=== PATIENT | male | born 1990 | race Caucasian/White ===

== ENCOUNTER 2021-11-27 11:10 | Day surgery (SDC) | payer MEDICARE, MEDICAID ==
[~2021-11-27] VITALS: Ht 175.3 cm; Wt 64.0 kg
[2021-11-27] MEDS ORDERED: FLUT16SP2 BOTHNARES (12:03)
[2021-11-27] MEDS ORDERED: DULO60CA65 PO (12:03)
[2021-11-27] MEDS ORDERED: LORA10TA7 PO (12:03)
[2021-11-27] MEDS ORDERED: HYDR-3686 PO (12:03)
[2021-11-27] MEDS ORDERED: DIAZ5TAB4 PO (12:03)
[2021-11-27] MEDS ORDERED: LIDOcaine 1% 30ml preserv. free vial SQ STA (12:06)
[2021-11-27 12:12] VITALS: BP 102/64
[2021-11-27 14:05] VITALS: BP 102/64
[2021-11-27 14:23] VITALS: BP 114/72
[2021-11-27 14:34] VITALS: BP 101/66
== END 2021-11-27 14:40 | disposition home or self-care (01) ==
LOC: SSTAY O 11:10
PROVIDERS: ATTEND Radiology Diagnostic Radiology
DX: R59.0 Localized enlarged lymph nodes (principal); C81.11 Nodular sclerosis Hodgkin lymphoma, lymph nodes of head, face, and neck; F32.A Depression, unspecified; G47.00 Insomnia, unspecified; G71.00 Muscular dystrophy, unspecified; Z20.822 Contact with and (suspected) exposure to COVID-19; Z98.890 Other specified postprocedural states; Z79.899 Other long term (current) drug therapy
CPT/HCPCS: 38505; 76942; 87635; C9803

== ENCOUNTER 2021-12-26 11:19 | Day surgery (SDC) | payer MEDICARE, MEDICAID ==
[2021-12-26] VITALS (8 sets, daily range): BP systolic 107–121; BP diastolic 70–83
[~2021-12-26] VITALS: Ht 177.8 cm; Wt 63.4 kg
[~2021-12-26 11:19] MED LIST: DIAZ5TAB4 PO; DULO60CA65 PO; FLUT16SP2 BOTHNARES; HYDR-3686 PO; LORA10TA7 PO
[2021-12-26] MEDS ORDERED: heparin sodium, porcine/PF 100unit/ml 5ML syringe ONE (11:48)
[2021-12-26] MEDS ORDERED: midazolam 1 mg/ML 2ml injection ONE ×2 (11:48→12:50)
[2021-12-26] MEDS ORDERED: LIDOcaine 1%/PF 5ML 10 MG/ML VIAL ONE ×2 (11:48)
[2021-12-26] MEDS ORDERED: fentaNYL/PF 50MCG/1 ML 2ML syringe ONE (11:49)
[2021-12-26] MEDS ORDERED: normal saline 1000ml 1,000 ML IV SCH (12:20)
[2021-12-26] MEDS ORDERED: diphenhydrAMINE 50 mg/ml inj ONE (12:50)
--- NOTE | 2021-12-26 14:20 | NUR ---
Written and Verbal DC instructions given to pt and mom, verbalize understanding. PIV DC cath intact, pt able to get dressed. Left chest incision with skin glue, no bleeding, bruising or hematoma noted.
== END 2021-12-26 14:40 | disposition home or self-care (01) ==
LOC: SSTAY O 11:19
PROVIDERS: ATTEND Radiology Diagnostic Radiology
DX: C81.11 Nodular sclerosis Hodgkin lymphoma, lymph nodes of head, face, and neck (principal); G71.00 Muscular dystrophy, unspecified; F32.A Depression, unspecified; Z20.822 Contact with and (suspected) exposure to COVID-19; Z79.899 Other long term (current) drug therapy
CPT/HCPCS: 36561; 76937; 77001; 87635; 99152; 99153; C1769; C1788; C1894; C9803; J1200; J1642; J2250; J3010; J3490

== ENCOUNTER 2022-09-19 08:07 | Day surgery (SDC) | payer MEDICARE, MEDICAID ==
[2022-09-13 10:40] LABS: CLARITY,URINE CLEAR (Clear); COLOR,URINE YELLOW (Yellow); GLUCOSE, URINE NEGATIVE (Neg); KETONES,URINE NEGATIVE (Neg); LEUKOCYTE ESTERASE ,URINE NEGATIVE (Neg); NITRITES, URINE NEGATIVE (Neg); OCCULT BLOOD,URINE NEGATIVE (Neg); PH,URINE 5.5 (4.8-8.0); PROTEIN,URINE NEGATIVE (Neg); UROBILINOGEN,URINE 0.2 E.U/dL (0.2-1.0)
[2022-09-13 10:41] LABS: BASOPHILS % (AUTO) 0.8 % (0-1); EOSINOPHILS # (AUTO) 0.4 X10'3 (0-0.9); EOSINOPHILS % (AUTO) 10.3 % (0-6); LYMPHOCYTES # (AUTO) 0.7 X10'3 (1.1-4.8); LYMPHOCYTES % (AUTO) 18.5 % (21-51); MEAN CORPUSCULAR HEMOGLOBIN 33.6 PG (27.0-31.0); MEAN CORPUSCULAR HGB CONC 34.2 g/dL (33.0-36.5); MEAN CORPUSCULAR VOLUME 98.2 FL (78-98); MEAN PLATELET VOLUME 7.7 FL (7.4-10.4); MONOCYTES # (AUTO) 0.3 X10'3 (0-0.9); MONOCYTES % (AUTO) 8.5 % (2-12); NEUTROPHILS # (AUTO) 2.5 X10'3 (1.8-7.7); NEUTROPHILS % (AUTO) 61.9 % (42-75); PRE OP HEMATOCRIT 42.3 % (42.0-52.0); PRE OP HEMOGLOBIN 14.5 g/dL (14.0-17.9); PRE OP PLATELET COUNT 230 X10'3 (140-440); RED BLOOD COUNT 4.31 X10'6 (4.70-6.10); RED CELL DISTRIBUTION WIDTH 13.1 % (11.5-14.5)
[2022-09-13 10:49] LABS: UA COLLECTION TYPE CLN CATCH MIDSTREAM
[2022-09-13 10:54] LABS: ALBUMIN 4.2 G/DL (3.4-5.0); ALBUMIN/GLOBULIN RATIO 1.3 (1.1-1.5); ALKALINE PHOSPHATASE 85 IU/L (46-116); BLOOD UREA NITROGEN 16 MG/DL (7-18); BUN/CREATININE RATIO 19.5 (5.4-32.0); CALCIUM 9.5 MG/DL (8.5-10.1); CHLORIDE 103 MMOL/L (99-107); CREATININE 0.82 MG/DL (0.60-1.10); PRE OP ALT 45 U/L (30-65); PRE OP ANION GAP 7 (8-16); PRE OP AST 32 U/L (10-37); PRE OP BILIRUB, TOTAL 0.5 MG/DL (0.0-1.0); PRE OP GLUCOSE 77 MG/DL (70-104); PRE OP SODIUM 142 MMOL/L (135-145); TOTAL CARBON DIOXIDE 32.3 MMOL/L (24-32); TOTAL PROTEIN 7.4 G/DL (6.4-8.2); eGFR > 90 ML/MIN
[~2022-09-19] VITALS: Ht 177.8 cm; Wt 65.6 kg
[2022-09-19] VITALS (10 sets, daily range): BP systolic 107–117; BP diastolic 33–78
[~2022-09-19 08:07] MED LIST changes: -FLUT16SP2 BOTHNARES; -HYDR-3686 PO; +ceFAZolin inj. 2,000 MG in dextrose 5%-water 100 ML IV ONE; +famotidine 20mg tablet PO ONE; +ringers solution, lacted 1,000 ML IV SCH
[2022-09-19] MEDS ORDERED: protamine sulfate 10mg/ml inj. ONE (10:54)
[2022-09-19] MEDS ORDERED: heparin 10,000 units/1 ML INJ ONE (10:54)
[2022-09-19] MEDS ORDERED: LIDOcaine 1% 30ml preserv. free vial ONE (10:54)
[2022-09-19] MEDS ORDERED: LIDOcaine 2% (20mg/ml) 5ml vial ONE (11:34)
[2022-09-19] MEDS ORDERED: rocuronium 10mg/ml inj IV ONE (11:34)
[2022-09-19] MEDS ORDERED: propofol inj 20 ML IV ONE (11:34)
[2022-09-19] MEDS ORDERED: fentaNYL/PF 50MCG/1 ML 2ML syringe ONE ×2 (11:34→11:54)
[2022-09-19] MEDS ORDERED: midazolam 1 mg/ML 2ml injection ONE (11:34)
[2022-09-19] MEDS ORDERED: sevoflurane 250ml liquid IH ONE (11:41)
[2022-09-19] MEDS ORDERED: ondansetron/PF 4mg/2ml inj ONE (11:41)
--- NOTE | 2022-09-19 12:44 | NUR ---
Received from OR via , accompanied by Anesthesiologist DR APONTE and report given by Anesthesiolgist. VSS. IV IN THE RIGHT UPPER ARM. ON MASK AT 10 LITERS. INCISION IN LEFT NECK WITH STITCHES AND DERMA AGUILAR Addendum: 09/19/22 at 1315 by Kathie Marquez RN Amended: Links added.
[2022-09-19] MEDS ORDERED: dexamethasone sod phosphate 4mg/ml inj. ONE (12:52)
[2022-09-19] MEDS ORDERED: glycopyrrolate 0.2mg/ml inj ONE (12:52)
[2022-09-19] MEDS ORDERED: neostigmine methylsulfate 1 MG/ML 10ml vial ONE (12:52)
[2022-09-19] MEDS ORDERED: morphine 2 MG/ML inj. syringe IV PRN (13:10)
[2022-09-19] MEDS ORDERED: morphine 4 MG/ML inj SYRINge IV PRN (13:10)
[2022-09-19] MEDS ORDERED: ringers solution, lacted 1,000 ML IV SCH (13:10)
[2022-09-19] MEDS ORDERED: meperidine/PF 25mg/ml syringe IV PRN ×3 (13:10)
[2022-09-19] MEDS ORDERED: proCHLORperazine 10 MG/2 ml inj IV PRN (13:10)
[2022-09-19] MEDS ORDERED: ondansetron/PF 4mg/2ml inj IV PRN (13:10)
--- NOTE | 2022-09-19 13:54 | NUR ---
PATIENT MEETS DISCHARGE CRITERIA. VSS. IV DC'D WITH NO ISSUES. WHEELED PATIENT TO THE LOBBY AND ASSISTED HIM TO HIS MOTHER'S VEHICLE Addendum: 09/19/22 at 1447 by Kathie Marquez RN Amended: Links added.
== END 2022-09-19 13:54 | disposition home or self-care (01) ==
LOC: PAS 08:07
PROVIDERS: ATTEND Surgery
DX: R59.0 Localized enlarged lymph nodes (principal); G20 Parkinson's disease; G71.00 Muscular dystrophy, unspecified; G60.0 Hereditary motor and sensory neuropathy; F32.9 Major depressive disorder, single episode, unspecified; Z79.899 Other long term (current) drug therapy; Z85.71 Personal history of Hodgkin lymphoma; F17.210 Nicotine dependence, cigarettes, uncomplicated; Z72.89 Other problems related to lifestyle; Z98.890 Other specified postprocedural states
CPT/HCPCS: 36415; 38510; 80053; 81003; 82948; 85025; 88184; 88185; A6258; J0690; J1100; J1644; J2175; J2250; J2270; J2405; J2704; J2710; J3010; J3490; J7030; J7060; J7120; Z7506; Z7508; Z7512; A4615; A4618; A7000; J2720